=== PATIENT | male | born 1990 ===

== ENCOUNTER 2018-06-18 13:52 | Emergency (ER) | payer OTHER, MEDICAID ==
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
== END 2018-06-18 14:45 | disposition home or self-care (01) ==
LOC: C.ER 13:52
DX: S13.4XXA Sprain of ligaments of cervical spine, initial encounter (principal); V49.50XA Passenger injured in collision with unspecified motor vehicles in traffic accident, initial encounter